=== PATIENT | female | born 1955 | race Caucasian/White ===

== ENCOUNTER 2017-04-30 19:17 | Emergency (ER) | payer MEDICARE, MEDICAID | END 2017-04-30 20:25 | disposition home or self-care (01) | LOC: BURERS 19:17 | DX: J01.90 Acute sinusitis, unspecified (principal); E78.5 Hyperlipidemia, unspecified; I10 Essential (primary) hypertension; F32.9 Major depressive disorder, single episode, unspecified; F17.210 Nicotine dependence, cigarettes, uncomplicated; Z79.84 Long term (current) use of oral hypoglycemic drugs; Z79.899 Other long term (current) drug therapy | CPT/HCPCS: 99283 ==

== ENCOUNTER 2017-10-29 14:56 | Emergency (ER) | payer MEDICARE, MEDICAID ==
--- NOTE | 2017-10-29 15:59 | RAD ---
3 VIEW RIGHT ANKLE SERIES: Date: 10/29/17 CLINICAL HISTORY: Pain. FINDINGS: There is evidence of lucency from prior hardware tracks seen at the distal diaphyses of the imaged ri ght tibia and fibula. There is degenerative change at the right ankle. Hardware is seen at the postop erative right foot. Prominent enthesophyte formation involves the plantar aspect of the calcaneus. No acute fracture visualized. IMPRESSION: 1. Postoperative lucencies of the distal right tibia and fibula, and partial imaging of postoperativ e right foot. 2. There is osteoarthritis of the right ankle without acute fracture identified. POS: [facility]
== END 2017-10-29 16:00 | disposition home or self-care (01) ==
LOC: BURERS 14:56
DX: M25.571 Pain in right ankle and joints of right foot (principal); E78.5 Hyperlipidemia, unspecified; I10 Essential (primary) hypertension; J44.9 Chronic obstructive pulmonary disease, unspecified; K21.9 Gastro-esophageal reflux disease without esophagitis; F32.9 Major depressive disorder, single episode, unspecified; F17.210 Nicotine dependence, cigarettes, uncomplicated; E11.9 Type 2 diabetes mellitus without complications; Z79.84 Long term (current) use of oral hypoglycemic drugs; Z79.899 Other long term (current) drug therapy

== ENCOUNTER 2018-05-18 16:09 | Emergency (ER) | payer MEDICARE, MEDICAID ==
[2018-05-18] MEDS ORDERED: Sulfameth/Trimethoprim DS 800-160mg TAB ONE (17:08)
[2018-05-18] MEDS ORDERED: cefTRIAXone\\ROCEPHIN 1 GM VIAL ONE ×2 (17:08→17:09)
[2018-05-18] MEDS ORDERED: traMADol HCl 50 MG TAB ONE (17:08)
[2018-05-18] MEDS ORDERED: Bacitracin Zinc 1 Packet ONE (17:27)
--- NOTE | 2018-05-18 21:27 | RAD ---
RIGHT FOOT THREE VIEWS: 05/18/18 Extensive postoperative changes from a prior ORIF of multiple fractures is noted. The orthopedic hard nicole appeared to be in expected positions with no sign of loosening. No acute fracture was demonstrat ed. Soft tissue swelling is seen over the dorsum of the foot, but the underlying metatarsals appear i ntact. The large calcaneal spur is present. IMPRESSION: Chronic changes but no acute bone finding. POS: HOME
== END 2018-05-18 17:39 | disposition home or self-care (01) ==
LOC: BURERS 16:09
DX: L03.115 Cellulitis of right lower limb (principal); E11.9 Type 2 diabetes mellitus without complications; I71.4 Abdominal aortic aneurysm, without rupture; F17.210 Nicotine dependence, cigarettes, uncomplicated; F32.9 Major depressive disorder, single episode, unspecified
CPT/HCPCS: 96372; J0696